=== PATIENT | female | born 2000 | race African-American/Black ===

== ENCOUNTER 2020-03-12 00:09 | Emergency (ER) | payer SELFPAY ==
[~2020-03-12] VITALS: Ht 162.6 cm; Wt 54.4 kg
[2020-03-12 00:35] VITALS: BP 111/65
[2020-03-12] MEDS ORDERED: KETOROLAC TROMETH 60MG/2ML VIAL IM ONE (03:00)
== END 2020-03-12 02:58 | disposition left against medical advice (07) ==
LOC: ER 00:17
DX: M79.602 Pain in left arm (principal); M25.532 Pain in left wrist; W19.XXXA Unspecified fall, initial encounter; Y93.89 Activity, other specified; Y92.89 Other specified places as the place of occurrence of the external cause; Y99.8 Other external cause status
CPT/HCPCS: 73090; 73110

== ENCOUNTER 2021-08-30 14:34 | Emergency (ER) | payer OTHER ==
[~2021-08-30] VITALS: Ht 160 cm; Wt 54.9 kg
[2021-08-30 14:49] VITALS: BP 111/65
[2021-08-30] MEDS ORDERED: ASPirin 81 mg TAB PO ONE (15:15)
[2021-08-30] MEDS ORDERED: NITROGLYCERIN 0.4 MG SL TAB SL ONE (16:30)
[2021-08-30 16:53] LABS: Basophils # (auto) 0.1 10 ^3/uL (0-0.2); Basophils % (auto) 0.8 % (0.0-2.0); Eosinophils # (auto) 0.2 10 ^3/uL (0-0.8); Hematocrit 37.7 % (36.0-46.0); Hemoglobin 12.8 g/dL (12.2-16.2); Lymphocytes # (auto) 2.5 10 ^3/uL (0.4-5.4); Lymphocytes % (auto) 31.5 % (10.0-50.0); Mean Corpuscular Hemoglobin 29.9 pg (28.0-32.0); Mean Corpuscular Volume 87.9 fL (80.0-100.0); Monocytes # (auto) 0.7 10 ^3/uL (0-1.3); Monocytes % (auto) 8.9 % (0.0-12.0); Neutrophils # (auto) 4.5 10 ^3/uL (1.6-8.6); Neutrophils % (auto) 56.8 % (37.0-80.0); Nucleated Red Blood Cells % 0.3 %; Red Cell Distribution Width 12.4 % (11.8-14.3); White Blood Cell 7.9 10^3/uL (4.4-10.8)
[2021-08-30 17:09] LABS: Potassium 3.8 mmol/L (3.5-5.1)
[2021-08-30 17:11] LABS: Bilirubin, Total 1.9 mg/dL (0.2-1.0); Total Protein 8.1 g/dL (6.4-8.2)
[2021-08-30 17:58] LABS: Urine Bacteria NONE SEEN /hpf (None Seen); Urine Blood Negative /uL (Negative); Urine Hyaline Cast FEW /lpf (0 - 2); Urine Specific Gravity 1.016 (1.001-1.035); Urine WBC <1 /hpf (0 - 5)
== END 2021-08-31 02:52 | disposition left against medical advice (07) ==
LOC: ER 14:34
DX: I24.9 Acute ischemic heart disease, unspecified (principal); J45.909 Unspecified asthma, uncomplicated; Z20.822 Contact with and (suspected) exposure to COVID-19
CPT/HCPCS: 36415; 80053; 81001; 84443; 84484; 85025; 93005